=== PATIENT | male | born 1990 | race Caucasian/White ===

== ENCOUNTER 2016-10-30 14:26 | Emergency (ER) | payer OTHER ==
[~2016-10-30] VITALS: Ht 182.9 cm; Wt 105.7 kg
[2016-10-30 14:32] VITALS: BP 131/79
[2016-10-30] MEDS ORDERED: IBUPROFEN800 M1 PO (14:47)
[2016-10-30] MEDS ORDERED: CYCLOBENZAPRINE10 M1 PO (14:47)
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
== END 2016-10-30 14:55 ==
LOC: ERH 14:26
DX: S16.1XXA Strain of muscle, fascia and tendon at neck level, initial encounter (principal); V89.2XXA Person injured in unspecified motor-vehicle accident, traffic, initial encounter